=== PATIENT | male | born 1980 | race Caucasian/White ===

== ENCOUNTER 2019-04-25 03:03 | Emergency (ER) | payer OTHER, BC ==
[~2019-04-25] VITALS: Ht 172.7 cm; Wt 89.8 kg
[2019-04-25] MEDS ORDERED: PERCOCET 5-3251 EACH PO (04:19)
[2019-04-25] MEDS ORDERED: AUGMENTIN 500-1 EACH PO (04:20)
[2019-04-25 04:45] VITALS: BP 145/92
== END 2019-04-25 04:46 | disposition home or self-care (01) ==
LOC: M.ERS 03:03
DX: S62.613A Displaced fracture of proximal phalanx of left middle finger, initial encounter for closed fracture (principal); S62.615A Displaced fracture of proximal phalanx of left ring finger, initial encounter for closed fracture; W23.0XXA Caught, crushed, jammed, or pinched between moving objects, initial encounter; Y92.89 Other specified places as the place of occurrence of the external cause; Y93.89 Activity, other specified; Y99.0 Civilian activity done for income or pay